=== PATIENT | male | born 1950 | race Caucasian/White ===

== ENCOUNTER 2017-07-22 13:42 | Emergency (ER) | payer OTHER, MEDICARE ==
[2017-07-22] MEDS ORDERED: morphine CARPU-JECT 10 MG/1 ML DISP.SYRIN ONE (14:02)
[2017-07-22] MEDS ORDERED: MIDAZOLAM HCL 5 MG/1 ML Single Dose Vial IVPUSH ONE (14:08)
[2017-07-22] MEDS ORDERED: KETAMINE HCL 200 MG/20 ML VIAL IVPUSH ONE (14:08)
--- NOTE | 2017-07-22 14:13 | PDOC ---
History of Present Illness - History of Present Illness Initial Comments: 07/22/17 14:40 The patient is a 66 year old male with a history of a right hip replacement and revision in 2015 who presents for evaluation of right hip pain following a fall. The patient reports that earlier today, he tripped, twisted his hip and fell onto his right hip with immediate pain. He denies head trauma, or other injuries. He denies numbness or tingling in his extremities, but reports extreme pain with manipulation of his leg. He denies headache, SOB, chest pain , or abdominal pain. <Giovanny Méndez - Last Filed: 07/22/17 19:03> <Melvin Delaney - Last Filed: 08/04/17 07:49> - General Chief Complaint: Injury Stated Complaint: POSSIBLE FRACTURE Time Seen by Provider: 07/22/17 13:55 Past History - Past Medical History Hypercholesterolemia: Yes - Suicide/Smoking/Psychosocial Hx Smoking Status: No Smoking History: Never smoked Have you smoked in the past 12 months: No Number of Cigarettes Smoked Daily: 0 Hx Alcohol Use: No Drug/Substance Use Hx: No Substance Use Type: None <Giovanny Méndez - Last Filed: 07/22/17 19:03> <Melvin Delaney - Last Filed: 08/04/17 07:49> - Past Medical History Allergies/Adverse Reactions: Allergies Allergy/AdvReac Type Severity Reaction Status Date / Time No Known Allergies Allergy Verified 07/22/17 14:21 Home Medications: Ambulatory Orders Aspirin 81 mg PO DAILY 02/10/13 Atorvastatin Ca [Lipitor (Restricted To Cardiology)] 20 mg PO HS 02/10/13 Review of Systems - Review of Systems Comments:: 07/22/17 14:47 Constitutional: No fevers, chills, fatigue, malaise HEENT: No Rhinorrhea, nasal congestion, visual changes Cardiovascular: No chest pain, syncope, palpitations, lightheadedness Respiratory: No Cough, SOB, Hemoptysis, Gastrointestinal: No Abdominal pain, Nausea, Vomiting, Constipation, Diarrhea, Melena Genitourinary: No Dysuria, Frequency, Urgency, Hesitancy, Hematuria, Flank pain Musculoskeletal: Right hip pain. No Myalgia, arthralgia Skin: No rashes, bruising, pallor Neurologic: No Headache, Dizziness, Numbness, Weakness, or Tingling <Giovanny Méndez - Last Filed: 07/22/17 19:03> *Physical Exam - Physical Exam Comments: 07/22/17 14:47 General Appearance: Nourished. In Severe Distress with manipulation of right leg. HEENT: EOMI, AFUA. No obvious signs of head trauma. No Pharyngeal Erythema, Tonsillar Exudate, Tonsillar Erythema Neck: No Cervical Lymphadenopathy or C-spine Tenderness. Respiratory/Chest: Lungs Clear, Normal Breath Sounds. No Crackles, Rales, Rhonchi, Wheezing Cardiovascular: Regular Rhythm, Regular Rate. No Murmur, Gallops, Rubs Gastrointestinal/Abdominal: Normal Bowel Sounds, Soft. No Guarding, Rebound, Tenderness Musculoskeletal: Obvious deformity of the right thigh. Sensation to light touch and temperature intact distally to the injury. Intact DP pulses bilaterally. No CVA Tenderness Extremity: Normal Capillary Refill Integumentary: Normal Color, Dry, Warm Neurologic: Fully Oriented, Alert, Normal Mood/Affect, Normal Response, <Giovanny Méndez - Last Filed: 07/22/17 19:03> - Vital Signs Last Vital Signs Temp Pulse Resp BP Pulse Ox 97.9 F 81 20 171/94 95 07/22/17 13:42 07/22/17 16:39 07/22/17 19:04 07/22/17 16:39 07/22/17 16:39 <Melvin Delaney - Last Filed: 08/04/17 07:49> Procedures - Splinting Splint Location: Left: Ankle, Knee Pre-Proc Neuro Vasc Exam: normal Pre-Made Type: Traction Splint Splint Type: Yes: Long Leg (Traction Splint) Post-Proc Neuro Vasc Exam: normal, unchanged from pre-exam Good repositioning: Yes <Giovanny Méndez - Last Filed: 07/22/17 19:03> - Consent Consent obtained: From Patient - Additional Procedures Progress: Moderate Sedation Crash cart at bedside. Laryngoscopes, BVM and suction at bedside. Fentanyl and Propofol utilized with no complications. Maintained good ventilations with normal capnography throughout the procedure. Pt able to respond with verbal stimulation while under moderate sedation. No hypoxia appreciated throughout the process. Pt was noted to return to baseline without complications following reduction of right femur. <Melvin Delaney - Last Filed: 08/04/17 07:49> ED Treatment Course - LABORATORY CBC & Chemistry Diagram: 07/22/17 14:11 07/22/17 14:11 - RADIOLOGY Radiology Studies Ordered: Category Date Time Status PELVIS [RAD] Stat Radiology 07/22/17 14:10 Ordered <HoneyGiovanny - Last Filed: 07/22/17 19:03> - LABORATORY CBC & Chemistry Diagram: 07/22/17 14:11 07/22/17 14:11 - ADDITIONAL ORDERS Additional order review: 07/22/17 14:11 RBC 4.33 MCV 95.8 MCHC 33.5 RDW 12.5 MPV 8.5 Neutrophils % 73.5 Lymphocytes % 17.4 Monocytes % 6.8 Eosinophils % 1.4 Basophils % 0.9 - Medications Given in the ED: ED Medications Discontinued Medications Generic Name Dose Route Start Last Admin Trade Name Itz PRN Reason Stop Dose Admin Fentanyl 100 mcg 07/22/17 15:43 07/22/17 16:12 Sublimaze Injection - IVPUSH 07/22/17 15:44 100 mcg ONCE ONE Administration Hydromorphone HCl 1 mg 07/22/17 14:16 07/22/17 14:20 Dilaudid Injection - IVPUSH 07/22/17 14:17 1 mg ONCE ONE Administration Hydromorphone HCl 1 mg 07/22/17 18:07 07/22/17 18:13 Dilaudid Injection - IVPUSH 07/22/17 18:08 1 mg ONCE ONE Administration Hydromorphone HCl 1 mg 07/22/17 20:11 07/22/17 20:12 Dilaudid Injection - IVPUSH 07/22/17 20:12 1 mg NOW ONE Administration Ketamine HCl 200 mg 07/22/17 14:08 07/22/17 17:07 Ketalar - IVPUSH 07/22/17 14:09 Not Given ONCE ONE Midazolam HCl 5 mg 07/22/17 14:08 07/22/17 17:07 Versed - IVPUSH 07/22/17 14:09 Not Given ONCE ONE Morphine Sulfate 8 mg 07/22/17 14:21 07/22/17 14:00 Morphine Injection - IVPUSH 07/22/17 14:22 8 mg ONCE ONE Administration Ondansetron HCl 4 mg 07/22/17 14:16 07/22/17 14:31 Zofran Injection IVPUSH 07/22/17 14:17 4 mg ONCE ONE Administration Propofol 20,000 mcg 07/22/17 15:43 07/22/17 16:33 Diprivan - IVPUSH 07/22/17 15:44 9,000 mcg ONCE ONE Administration <Melvin Delaney - Last Filed: 08/04/17 07:49> Medical Decision Making - Medical Decision Making 07/22/17 14:55 The patient is a 66 year old male with a history of a right hip replacement and revision in 2015 who presents for evaluation of right hip pain following a fall. Differential includes but is not limited to: Fracture, dislocation, contusion. Given the patient's obvious deformity and severe pain, it is likely the patient fracture his femur. We obtain pelvis plain films which demonstrated a displaced femur fracture at the distal aspect of his prosthesis. We sent pre-op labs including cbc, cmp, type and screen, inr, chest plain film. We will consult with orthopedics for evaluation. 07/22/17 17:00 Patient requesting transfer to [facility] where he previously had his hip surgery. Discussed with orthopedics who stated that they are able to take the patient for management, however if he would like to be transferred that would be an appropriate as well. We preformed procedural sedation to reduce the leg and place it in a traction splint. The patient continues to be neurovasculary intact following the procedure. Transfer has been initiated to [facility]. <Giovanny Méndez - Last Filed: 07/22/17 19:03> *DC/Admit/Observation/Transfer - Transfer to Acute Care Facility Receiving Facility: Other hosp. not listed ([facility]) Accepting Physician:: Dr. Corona <Giovanny Méndez - Last Filed: 07/22/17 19:03> <Melvin Delaney - Last Filed: 08/04/17 07:49> Diagnosis at time of Disposition: Right femoral fracture Qualifiers: Encounter type: initial encounter Femur location: unspecified portion of femur Fracture type: closed Fracture morphology: unspecified fracture morphology Qualified Code(s): S72.91XA - Unspecified fracture of right femur, initial encounter for closed fracture - Discharge Dispostion Disposition: TRANSFER ACUTE CARE/OTHER HOSP Condition at time of disposition: Stable
[2017-07-22] MEDS ORDERED: HYDROmorphone HCL CARPU-JECT 1 MG/1 ML DISP.SYRIN IVPUSH ONE ×3 (14:16→20:11)
[2017-07-22] MEDS ORDERED: ONDANSETRON 4 MG/2 ML VIAL IVPUSH ONE (14:16)
[2017-07-22 14:18] LABS: BASOPHIL 0.9 % (0-2.0); EOSINOPHIL 1.4 % (0-4.5); MCH 32.1 pg (25.7-33.7); MCHC 33.5 g/dl (32.0-35.9); MEAN CELL VOLUME 95.8 fl (80-96); MEAN PLT VOLUME 8.5 fl (7.5-11.1); NEUTROPHILS 73.5 % (42.8-82.8); PLATELET COUNT 216 K/MM3 (134-434); RDW 12.5 % (11.9-15.9); WHITE BLOOD COUNT 6.9 K/mm3 (4.0-10.0)
[2017-07-22] MEDS ORDERED: HYDROmorphone HCL CARPU-JECT 1 MG/1 ML DISP.SYRIN ONE ×3 (14:20→20:02)
[2017-07-22] MEDS ORDERED: morphine CARPU-JECT 10 MG/1 ML DISP.SYRIN IVPUSH ONE (14:21)
[2017-07-22] MEDS ORDERED: ONDANSETRON 4 MG/2 ML VIAL ONE (14:22)
[2017-07-22 14:28] VITALS: TEMP 97.9; BMI 88.6
[2017-07-22 14:36] LABS: INR 0.94 (0.82-1.09); PROTHROMBIN TIME (PATIENT) 10.6 SEC (9.98-11.88)
[2017-07-22 14:39] LABS: ACTIVATED PTT 26.8 SECONDS (26.9-34.4)
[2017-07-22 14:48] LABS: ALBUMIN 3.9 g/dl (3.4-5.0); ANION GAP 10 (8-16); BILIRUBIN,TOTAL 0.5 mg/dL (0.2-1.0); CALCIUM 8.7 mg/dL (8.5-10.1); CO2 26 mmol/L (21-32); CREATININE 0.9 mg/dL (0.7-1.3); GLUCOSE,RANDOM 92 mg/dL (74-106); SGOT/AST 26 U/L (15-37); SGPT/ALT 31 U/L (12-78); TOT PROT 7.5 g/dl (6.4-8.2)
--- NOTE | 2017-07-22 14:48 | PDOC ---
Attending Attestation - Resident Resident Name: Giovanny Méndez - ED Attending Attestation I have performed the following: I have examined & evaluated the patient, The case was reviewed & discussed with the resident, I agree w/resident's findings & plan, Exceptions are as noted - HPI HPI: 07/22/17 14:45 66 year old M c/ hx of atrial fibrillation, HLD, R hip replacement in [facility] and later revised in 2014 at [facility] p/w R hip/femur pain. Pt slipped and twisted R leg. Came in with excruciating pain. Denies numbness. 2+ DP pulse LLE. Radiograph demonstrates a fracture of the femur distal to the prosthetic R hip. Ortho paged. No evidence of skin breakage. - Physicial Exam PE: 07/22/17 14:46 GENERAL: uncomfortable appearing CV: RRR, +s1, s2 PULM: CTA b/l Obvious deformity of right femur with no evidence of open fracture. Distal portion of the femur is angulated. 2+ DP pulse LLE. - Medical Decision Making 07/22/17 14:48 Vital Signs Temp Pulse Resp BP Pulse Ox 97.9 F 81 18 176/111 100 07/22/17 13:42 07/22/17 13:42 07/22/17 13:42 07/22/17 13:42 07/22/17 13:42 Xray demonstrates significant fracture distal to Right prosthetic hip. Neurovascularly intact Stat ortho consultation. Pre-op labs Pain control Admission. 07/22/17 16:59 Xray reviewed. Significant femur fracture with displacement. Decision was made to place patient in hare traction splint. Patient consented for moderate sedation and reduction. Mallampatti 1 Procedure performed with , Dr. Santana, Dr. Méndez, and Dr. Simmons. 90 mg propofol and 100 mcg fentanyl given. Pt successfully placed in traction splint Pt remains neurovascularly intact with 2+ DP Pulse. After discussion with the patient, the patient requests to go to [facility] as he had his hip revised at [facility]. Case discussed with ortho fellow Dr. Kramer at [facility] who accepts patient for transfer. Heart Score/ECG Review #1 ECG reviewed & interpreted by me at: 15:15 07/22/17 15:22 NSR 85, WPW, no std/sharda, QTC 485 msec
[2017-07-22 14:51] LABS: ALK PHOS 62 U/L (45-117); CPK 162 IU/L (39-308); TROPONIN I < 0.02 ng/ml (0.00-0.05)
[2017-07-22] MEDS ORDERED: PROPOFOL 200 MG/20 ML VIAL IVPUSH ONE (15:43)
[2017-07-22] MEDS ORDERED: PROPOFOL 20 ML ONE (15:48)
[2017-07-22 16:39] VITALS: BP 171/94; PULSE 81
--- NOTE | 2017-07-23 11:05 | EKG ---
Test Reason : Blood Pressure : / mmHG Vent. Rate : 085 BPM Atrial Rate : 085 BPM P-R Int : 124 ms QRS Dur : 102 ms QT Int : 408 ms P-R-T Axes : 072 -04 094 degrees QTc Int : 485 ms NORMAL SINUS RHYTHM [id number] ABNORMAL ECG NO PREVIOUS ECGS AVAILABLE Confirmed by FLORINA PAUL MD ([id number]) on 07/23/2017 11:04:34 AM Referred By: Confirmed By:FLORINA PAUL MD
== END 2017-07-22 20:13 | disposition short-term general hospital (02) ==
LOC: JER 13:42
PROC: 3E033NZ Introduction of Analgesics, Hypnotics, Sedatives into Peripheral Vein, Percutaneous Approach (ICD-10-PCS; principal; 2017-07-22)
PROC: 3E033GC Introduction of Other Therapeutic Substance into Peripheral Vein, Percutaneous Approach (ICD-10-PCS; 2017-07-22)
PROC: 3E033NZ Introduction of Analgesics, Hypnotics, Sedatives into Peripheral Vein, Percutaneous Approach (ICD-10-PCS; 2017-07-22)
PROC: 3E033NZ Introduction of Analgesics, Hypnotics, Sedatives into Peripheral Vein, Percutaneous Approach (ICD-10-PCS; 2017-07-22)
PROC: 0QS8XZZ Reposition Right Femoral Shaft, External Approach (ICD-10-PCS; 2017-07-22)
PROC: 2W3LX1Z Immobilization of Right Lower Extremity using Splint (ICD-10-PCS; 2017-07-22)
DX: S72.91XA Unspecified fracture of right femur, initial encounter for closed fracture (principal); E78.00 Pure hypercholesterolemia, unspecified; Z79.82 Long term (current) use of aspirin; Z96.641 Presence of right artificial hip joint; W18.39XA Other fall on same level, initial encounter; Y93.89 Activity, other specified; Y92.014 Private driveway to single-family (private) house as the place of occurrence of the external cause; M97.01XA Periprosthetic fracture around internal prosthetic right hip joint, initial encounter
CPT/HCPCS: 27502; 29505; 36415; 71010-TC; 72170-TC; 80053; 82550; 82553; 84484; 85025; 85610; 85730; 86850; 86900; 86901; 93005; 93010; 96374; 96375; 99285-25

== ENCOUNTER 2019-11-25 09:23 | Inpatient (IN) | payer OTHER, MEDICARE ==
--- NOTE | 2019-11-25 09:55 | PDOC ---
History of Present Illness - General Chief Complaint: Pain Stated Complaint: SENT FROM URGENT CARE FOR FURTHER EVAL HAD EKG Time Seen by Provider: 11/25/19 09:43 History Source: Patient Exam Limitations: No Limitations - History of Present Illness Travel History: No Initial Comments: 11/25/19 09:52 69y M pmhx WPW, presents with episode of epgiastric pain last night around 2am. Patient describes the pain as a sharp/burning epigastric discomfort approximately 7 out of 10, that is nonradiating. Patient states that he tried to drink some water and it worsened the burning last night. Patient denies any other symptoms including nausea, vomiting, diaphoresis, shortness of breath, back pain, palpitations. The patient's ambulated to the restroom and did feel very lightheaded and felt like he was about to pass out but resolved after a brief period of time. He notes that after initial onset of symptoms the symptoms gradually improved by time of back to bed around 3 AM. Since awakening this morning the patient denies any epigastric discomfort, chest pain, shortness of breath, nausea, vomiting or any other symptoms. Patient has never felt similar symptoms in the past. He did note that he had some not shows with [employer] yesterday which is atypical for him Around 3 PM he had a Healthy dinner of chicken last night. 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) Social history denies any IVDU recreational drug use, smoking, social etoh Family hx: prostate ca, no known cardiac issues in family Past History - Past Medical History Allergies/Adverse Reactions: Allergies Allergy/AdvReac Type Severity Reaction Status Date / Time No Known Allergies Allergy Verified 11/25/19 09:34 Home Medications: Ambulatory Orders Aspirin [ASA -] 81 mg PO DAILY tab.chew 11/26/19 Atorvastatin Ca [Lipitor] 80 mg PO HS tablet 11/26/19 Enoxaparin [Lovenox -] 75 mg SQ Q12H disp.syrin 11/26/19 Metoprolol Tartrate [Lopressor -] 12.5 mg PO BID tablet 11/26/19 Nitroglycerin Sublingual [Nitrostat -] 0.4 mg SL Q5M PRN tab 11/26/19 Pantoprazole Sodium [Protonix IV] 40 mg IVPUSH DAILY vial 11/26/19 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) COPD: No Hypercholesterolemia: Yes - Psycho Social/Smoking Cessation Hx Smoking Status: No Smoking History: Never smoked Have you smoked in the past 12 months: No Number of Cigarettes Smoked Daily: 0 Hx Alcohol Use: Yes (SOCIAL) Drug/Substance Use Hx: No Substance Use Type: None Review of Systems - Review of Systems Able to Perform ROS?: Yes Comments:: 11/25/19 10:37 Constitutional - no reported Fever, Chills, HEENT: no reported vision changes, sore throat Respiratory: no reported cough, sob, hemoptysis Cardiac: +light headedness no reported chest pain, palpitations, , leg swelling Abd/GI: +abd pain, no reported nausea, vomiting, blood per rectum, melena, diarrhea : no reported dysuria, frequency, discharge Musculskelatal - no reported back pain, joint swelling skin - no reported bruising, erythema, rash neurological: no reported headache, numbness, focal weakness, tingling, ataxia, hematologic: no reported easy bruising, easy bleeding *Physical Exam - Vital Signs Last Vital Signs Temp Pulse Resp BP Pulse Ox 97.9 F 67 16 117/84 98 11/25/19 09:33 11/25/19 09:33 11/25/19 09:33 11/25/19 09:33 11/25/19 09:33 - Physical Exam 11/25/19 10:37 GENERAL: The patient is awake, alert, and fully oriented, Nontoxic - in no acute distress. HEAD: Normocephalic, atraumatic. EYES: extraocular movements intact, sclera anicteric, conjunctiva clear. ENT: Normal voice, Moist mucous membranes. NECK: Normal range of motion, supple LUNGS: Breath sounds equal, clear to auscultation bilaterally. No wheezes, no rhonchi, no rales. HEART: Regular rate and rhythm, normal S1 and S2 without murmur, rub or gallop. ABDOMEN: Soft, nontender, No guarding, no rebound. No CVA tenderness EXTREMITIES: Normal range of motion, no edema. NEUROLOGICAL: No facial assymetry, Normal speech, PSYCH: Normal mood, normal affect. SKIN: Warm, Dry, normal turgor, Heart Score/ECG Review - ECG Impressions Comment:: 11/25/19 10:38 Twelve-lead EKG was performed and reviewed by me. Sinus rhythm LVH Delta wave consistent with WPW Short VA interval Impression: WPW ED Treatment Course - LABORATORY CBC & Chemistry Diagram: 11/26/19 06:47 11/27/19 06:55 Medical Decision Making - Medical Decision Making 11/25/19 10:41 69-year-old gentleman history of WPW presenting with episode of sharp burning epigastric pain last night associated with lightheadedness that is since resolved without any associated shortness of breath, dyspnea on exertion, nausea , vomiting, diaphoresis. Patient was sent to the ER for evaluation by urgent care for cardiac work-up. Patient is currently asymptomatic with an unremarkable physical exam Differential for the patient's symptoms includes possible gastritis, consider cardiac cause, Although it is somewhat atypical as the patient has a very active lifestyle And has been asymptomatic during his workouts. Consider also possible gallstone disease. Will obtain blood work, troponin x1 EKG unchanged from prior showing WPW Will reassess 11/25/19 11:50 Pts trop noted to be slightly eelvated at .35 - will admit for further risk stratification will give pt 3 additional baby aspirin (he had 1 baby asa this morning) 11/25/19 11:55 Pt denies any chest pain at this time 11/25/19 12:[address] foster of cardiology. will place admit for further manageme awaiting call back from hospitalist team pt remains asymptomatic 11/25/19 12:35 cxr clear without signs of infiltrates 11/26/19 18:45 Case discussed in detail with admitting physician including history, physical exam and ancillary studies. Admitting physician has assumed care for the patient, will follow all pending diagnostics and will complete the evaluation and treatment. Discharge - Discharge Information Problems reviewed: Yes Clinical Impression/Diagnosis: Chest pain Qualifiers: Chest pain type: unspecified Qualified Code(s): R07.9 - Chest pain, unspecified Condition: Stable Disposition: TRANSFER ACUTE CARE/OTHER HOSP - Admission Yes - Follow up/Referral - Patient Discharge Instructions - Post Discharge Activity
[2019-11-25 10:29] LABS: BASO % 0.9 % (0-2.0); EOS % 2.7 % (0-4.5); HEMATOCRIT 42.8 % (35.4-49); HEMOGLOBIN 14.3 GM/dl (11.7-16.9); LYMPH % 17.3 % (8-40); MCH 32.1 pg (25.7-33.7); MCHC 33.4 g/dl (32.0-35.9); MEAN CELL VOLUME 96.1 fl (80-96); MEAN PLT VOLUME 8.2 fl (7.5-11.1); MONO % 8.4 % (3.8-10.2); NEUT % 70.7 % (42.8-82.8); PLATELET COUNT 249 K/MM3 (134-434); RBC 4.45 M/mm3 (4.00-5.60); RDW 12.1 % (11.9-15.9)
[2019-11-25 10:43] LABS: BILIRUBIN,TOTAL 0.9 mg/dl (0.2-1); CALCIUM 9.4 mg/dl (8.5-10); CREATININE 0.9 mg/dl (0.55-1.3); POTASSIUM 4.7 mmol/L (3.5-5.1); TOT PROT 7.3 g/dl (6.4-8.2)
[2019-11-25] MEDS ORDERED: ASPIRIN 81 MG CHEWABLE TABLETS PO ONE ×2 (11:30→11:49)
[2019-11-25] MEDS ORDERED: ASPIRIN 81 MG CHEWABLE TABLETS ONE (11:34)
[2019-11-25] MEDS ORDERED: NITROGLYCERIN SUBLINGUAL 1/150 0.4 MG TAB SL PRN (16:34)
--- NOTE | 2019-11-25 16:34 | HP ---
CHIEF COMPLAINT: Chest pain PCP: Ana Arriola in [facility] HISTORY OF PRESENT ILLNESS: 69 year-old male with a PMH significant for hyperlipidemia, and Mike-Parkinson- White syndrome (lifelong asymptomatic), presented to the ED for evaluation of an episode of chest pain at 2:00am this morning. The pain awoke patient from sleep. He describes the pain as a sharp/burning epigastric discomfort, directly over the sternum, approximately 7 out of 10, nonradiating left or right. When he walked to the bathroom he felt lightheaded like he was about to pass out. He tried to drink some water but it made the burning pain worse. He went back to bed. The following events are related by patient's as patient states he has no recollection of what happened next. At 4am he took Pepto Bismol and again went back to sleep. At 6:30am, his observed him stumbling into her bathroom. He was unsteady on his feet with labored breathing and complaining of severe chest pain. She told him to get back in bed. She called urgent care and made an appointment for 8am. She woke him at 7:50am and drove him to urgent care. She observed him walking slowly with labored breathing. She felt his pulse which to her felt strong and steady, not racing. Patient's only recollection is that he felt weak. Since arriving in the ED patient states the pain has completely resolved. Two months ago patient had a gout flare in his right ankle, took colchicine x 5 days, remained active. About two weeks ago he had circumferential swelling about the right ankle. He did not seek medical care , he remained active, and the swelling resolved. No recent surgeries, periods of immobilization. Only recent travel was a car trip to [place] last Monday, [address] 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 from [employer] Smoking: never Alcohol: no Drugs: no Family history: Father prostate cancer, two brothers with prostate cancer; mother alive with heart problems Allergies No Known Allergies Allergy (Verified 11/25/19 09:34) HOME MEDICATIONS: Home Medications Medication Instructions Recorded Aspirin 81 mg PO DAILY 02/10/13 Atorvastatin Ca [Lipitor 20 mg PO HS 02/10/13 (Restricted To Cardiology)] REVIEW OF SYSTEMS CONSTITUTIONAL: Absent: fever, chills, diaphoresis, generalized weakness, malaise, loss of appetite, weight change HEENT: Absent: rhinorrhea, nasal congestion, throat pain, throat swelling, difficulty swallowing, mouth swelling, ear pain, eye pain, visual changes CARDIOVASCULAR: +chest pain, lightheadedness, near syncope, SOB Absent: palpitations, irregular heart rate, peripheral edema RESPIRATORY: Absent: cough, shortness of breath, dyspnea with exertion, orthopnea, wheezing, stridor, hemoptysis GASTROINTESTINAL: Absent: abdominal pain, abdominal distension, nausea, vomiting, diarrhea, constipation, melena, hematochezia GENITOURINARY: Absent: dysuria, frequency, urgency, hesitancy, hematuria, flank pain, genital pain MUSCULOSKELETAL: Absent: myalgia, arthralgia, joint swelling, back pain, neck pain SKIN: Absent: rash, itching, pallor HEMATOLOGIC/IMMUNOLOGIC: Absent: easy bleeding, easy bruising, lymphadenopathy, frequent infections ENDOCRINE: Absent: unexplained weight gain, unexplained weight loss, heat intolerance, cold intolerance NEUROLOGIC: Absent: headache, focal weakness or paresthesias, dizziness, unsteady gait, seizure, mental status changes, bladder or bowel incontinence PSYCHIATRIC: Absent: anxiety, depression, suicidal or homicidal ideation, hallucinations. PHYSICAL EXAMINATION Vital Signs - 24 hr 11/25/19 11/25/19 11/25/19 09:33 13:18 15:24 Temperature 97.9 F Pulse Rate 67 Pulse Rate [ 62 64 Apical] Respiratory 16 16 16 Rate Blood Pressure 117/84 Blood Pressure 140/93 136/93 [Right Arm] O2 Sat by Pulse 98 100 100 Oximetry (%) GENERAL: Awake, alert, and fully oriented, in no acute distress. HEAD: Normal with no signs of trauma. EYES: Pupils equal, round and reactive to light, extraocular movements intact, sclera anicteric, conjunctiva clear. No lid lag. EARS, NOSE, THROAT: Ears normal, nares patent, oropharynx clear without exudates. Moist mucous membranes. NECK: Normal range of motion, supple without lymphadenopathy, JVD, or masses. LUNGS: Breath sounds equal, clear to auscultation bilaterally. No wheezes, and no crackles. No accessory muscle use. HEART: Regular rate and rhythm, normal S1 and S2 without murmur, rub or gallop. ABDOMEN: Soft, nontender, not distended, normoactive bowel sounds, no guarding, no rebound, no masses. No hepatomegaly or splenomegaly. MUSCULOSKELETAL: Normal range of motion at all joints. No bony deformities or tenderness. No CVA tenderness. UPPER EXTREMITIES: 2+ pulses, warm, well-perfused. No cyanosis. No clubbing. No peripheral edema. LOWER EXTREMITIES: 2+ pulses, warm, well-perfused. No calf tenderness. No peripheral edema. NEUROLOGICAL: Cranial nerves II-XII intact. Normal speech. Normal gait. PSYCHIATRIC: Cooperative. Good eye contact. Appropriate mood and affect. SKIN: Warm, dry, normal turgor, no rashes or lesions noted, normal capillary refill. Laboratory Results - last 24 hr 11/25/19 11/25/19 11/25/19 10:14 10:14 10:14 WBC 5.0 RBC 4.45 Hgb 14.3 Hct 42.8 MCV 96.1 H MCH 32.1 MCHC 33.4 RDW 12.1 Plt Count 249 MPV 8.2 Absolute Neuts (auto) 3.6 Neutrophils % 70.7 Lymphocytes % 17.3 Monocytes % 8.4 Eosinophils % 2.7 Basophils % 0.9 Sodium 140 Potassium 4.7 Chloride 103 Carbon Dioxide 27 Anion Gap 10 BUN 23.0 H Creatinine 0.9 Est GFR (CKD-EPI)AfAm 99.94 Est GFR (CKD-EPI)NonAf 86.23 Random Glucose 108 H Calcium 9.4 Total Bilirubin 0.9 AST 25 ALT 22 Alkaline Phosphatase 62 Creatine Kinase Creatine Kinase Index CK-MB (CK-2) Troponin I Total Protein 7.3 Albumin 4.0 Lipase 139 11/25/19 11/25/19 11/25/19 10:14 10:14 13:35 WBC RBC Hgb Hct MCV MCH MCHC RDW Plt Count MPV Absolute Neuts (auto) Neutrophils % Lymphocytes % Monocytes % Eosinophils % Basophils % Sodium Potassium Chloride Carbon Dioxide Anion Gap BUN Creatinine Est GFR (CKD-EPI)AfAm Est GFR (CKD-EPI)NonAf Random Glucose Calcium Total Bilirubin AST ALT Alkaline Phosphatase Creatine Kinase 157 Creatine Kinase Index 5.2 H CK-MB (CK-2) 8.2 H Troponin I No Result Required. 0.35 H 0.41 H Total Protein Albumin Lipase Cancelled 11/25/19 13:35 WBC RBC Hgb Hct MCV MCH MCHC RDW Plt Count MPV Absolute Neuts (auto) Neutrophils % Lymphocytes % Monocytes % Eosinophils % Basophils % Sodium Potassium Chloride Carbon Dioxide Anion Gap BUN Creatinine Est GFR (CKD-EPI)AfAm Est GFR (CKD-EPI)NonAf Random Glucose Calcium Total Bilirubin AST ALT Alkaline Phosphatase Creatine Kinase 138 Creatine Kinase Index CK-MB (CK-2) Troponin I Total Protein Albumin Lipase ASSESSMENT/PLAN: 69 year-old male with a PMH significant for hyperlipidemia and Mike-Parkinson- White syndrome, placed on observation for chest pain and elevated troponins. Chest pain NSTEMI --troponins trending up: 0.35-->0.41-->0.64; continue to trend --serial ECGs: no acute ischemic changes; no significant change from 2017 --CXR unremarkable --discussed with Dr. Baca: ASA, increase atorvastatin to 80mg, lovenox 1mg/kg BID, low dose metoprolol --telemetry monitoring --echo in am --CTA done: dictation pending Hyperlipidemia --continue statin Gout --not on regular medication; last flare 2 months ago FEN Fluids: PO intake adequate Electrolytes: replete as indicated; keep K>4, Mg>2 Nutrition: regular diet; NPO after midnight DVT prophylaxis: on lovenox Dispo: continues to require continued observation. Full code. Visit type - Emergency Visit Emergency Visit: Yes ED Registration Date: 11/25/19 Care time: The patient presented to the Emergency Department on the above date and was hospitalized for further evaluation of their emergent condition. - New Patient This patient is new to me today: Yes Date on this admission: 11/25/19 - Critical Care Critical Care patient: No
[2019-11-25 16:53] VITALS: BMI 24.0
[2019-11-25] MEDS: PANTOPRAZOLE SODIUM 40 MG VIAL IVPUSH SCH (17:33)
[2019-11-25 18:15] LABS: ACTIVATED PTT 29.4 SECONDS (25.2-36.5)
[2019-11-25 18:19] LABS: INR 1.06 (0.82-1.09); PROTHROMBIN TIME (PATIENT) 11.9 SEC (10.2-13.0)
[2019-11-25 18:21] LABS: CHOLESTEROL 198 mg/dl (50-200); HDL CHOLESTEROL 60 mg/dl (40-60); LDL CHOLESTEROL (ONLY DFH) 105 mg/dl (5-100); TRIGLYCERIDES 167 mg/dl (0-150)
[2019-11-25] MEDS: ENOXAPARIN NA (PORCINE) 80 MG/0.8 ML DISP.SYRIN SQ SCH (19:31)
[2019-11-25] MEDS ORDERED: METOPROLOL TARTRATE 25 MG TABLET (FP) PO ONE (20:07)
[2019-11-25] MEDS: ATORVASTATIN CA 80 MG TABLET (FP) PO SCH (21:48)
[2019-11-25] MEDS ORDERED: HEPARIN NA (PORCINE) 5,000 UNITS/ML 1ML VIAL SQ SCH (22:00)
[2019-11-25] MEDS ORDERED: ATORVASTATIN CA 20 MG TABLET (FP) PO SCH (22:00)
[2019-11-26] MEDS: ENOXAPARIN NA (PORCINE) 80 MG/0.8 ML DISP.SYRIN SQ SCH ×2 (06:19→19:15)
[2019-11-26 07:48] LABS: BASO % 0.8 % (0-2.0); EOS % 3.7 % (0-4.5); HEMATOCRIT 40.1 % (35.4-49); HEMOGLOBIN 13.3 GM/dl (11.7-16.9); LYMPH % 20.2 % (8-40); MCH 31.7 pg (25.7-33.7); MCHC 33.2 g/dl (32.0-35.9); MEAN CELL VOLUME 95.3 fl (80-96); MONO % 9.5 % (3.8-10.2); NEUT % 65.8 % (42.8-82.8); PLATELET COUNT 232 K/MM3 (134-434); RBC 4.21 M/mm3 (4.00-5.60); RDW 11.9 % (11.9-15.9); WHITE BLOOD COUNT 5.2 K/mm3 (4.0-10.8)
[2019-11-26 08:00] LABS: ALBUMIN 3.5 g/dl (3.4-5.0); BILIRUBIN,TOTAL 0.7 mg/dl (0.2-1); CALCIUM 8.8 mg/dl (8.5-10); CREATININE 0.9 mg/dl (0.55-1.3); MAGNESIUM 2.1 mg/dL (1.8-2.4); TOT PROT 6.4 g/dl (6.4-8.2)
--- NOTE | 2019-11-26 09:23 | EKG ---
Test Reason : Blood Pressure : / mmHG Vent. Rate : 065 BPM Atrial Rate : 065 BPM P-R Int : 136 ms QRS Dur : 140 ms QT Int : 420 ms P-R-T Axes : 137 -26 148 degrees QTc Int : 436 ms UNUSUAL P AXIS, POSSIBLE ECTOPIC ATRIAL RHYTHM LEFT VENTRICULAR HYPERTROPHY WITH QRS WIDENING INFERIOR INFARCT (CITED ON OR BEFORE 25-NOV-2019) T WAVE ABNORMALITY, CONSIDER LATERAL ISCHEMIA ABNORMAL ECG Confirmed by Markos Mcpherson MD ([id number]) on 11/26/2019 9:22:52 AM Referred By: IONA ENGEL Confirmed By:Markos Mcpherson MD
--- NOTE | 2019-11-26 09:59 | CON.CARD ---
Consult Consult Specialty:: Cardiology Referred by:: Hospitalist Reason for Consultation:: Cardiac evaluation - History of Present Illness Chief Complaint: Chest pain History of Present Illness: Patient is a 69 year old male with underlying history of WPW (asymptomatic) and hypercholesterolemia who presented with episode of chest pressure early Monday morning which at first thought was a heartburn. He stated burning epigastric discomfort and felt like passing out with lightheadedness. Pressure was non- radiating and did not have diaphoresis or sweating. Later that morning, his breathing appeared labored according to his . He denies any events or symptoms on Monday or Monday. He went to urgent care center where he was evaluated and was told to go to ED. Patient was found to have elevated troponin which peaked at 0.64 and now down to 0.30. He was given high intensity statin, ASA and Lovenox. Patient had taken Colchicine for gout flare 2 months ago. Currently he denies chest pain, shortness of breath or palpitations. He denies fever or chills. He denies headache or lightheadedness at this time. He denies nausea. vomiting, diarrhea or abdominal pain. Incidentally, CT chest revealed 11 mm right pulmonary nodule spiculated/irregularly reported suspicious for malignancy. CT chest did not reveal pulmonary embolism. Lower extremity Doppler did not reveal DVT. PMD: John Faulkner MD: [facility] - History Source History Provided By: Patient, Family Member, Medical Record Limitations to Obtaining History: No Limitations - Past Medical History Cardio/Vascular: Yes: Hyperlipdemia - Past Surgical History Past Surgical History: Yes: Joint Replacement Additional Surgical History: Laminectomy - Alcohol/Substance Use Hx Alcohol Use: Yes (SOCIAL) - Smoking History Smoking history: Never smoked Have you smoked in the past 12 months: No Aproximately how many cigarettes per day: 0 Home Medications - Allergies Allergies/Adverse Reactions: Allergies Allergy/AdvReac Type Severity Reaction Status Date / Time No Known Allergies Allergy Verified 11/25/19 09:34 - Home Medications Home Medications: Ambulatory Orders Aspirin 81 mg PO DAILY 02/10/13 Atorvastatin Ca [Lipitor (Restricted To Cardiology)] 20 mg PO HS 02/10/13 Family Medical History Other Family History: Prostate cancer, hypercholesterolemia. Denies CAD Review of Systems - Review of Systems Constitutional: denies: Chills, Fever Cardiovascular: reports: Chest Pain. denies: Palpitations, Shortness of Breath Respiratory: denies: Cough, Hemoptysis, Orthopnea, PND, SOB, SOB on Exertion, Wheezing Gastrointestinal: denies: Abdominal Pain, Constipation, Diarrhea, Melena, Nausea , Rectal Bleeding, Vomiting Genitourinary: denies: Dysuria, Hematuria Musculoskeletal: denies: Back Pain, Joint Pain Neurological: denies: Dizziness, Headache, Seizure, Syncope Vital Signs: Vital Signs Temperature 98.1 F 11/26/19 08:57 Pulse Rate 71 11/26/19 08:57 Respiratory Rate 16 11/26/19 08:57 Blood Pressure 106/69 11/26/19 08:57 O2 Sat by Pulse Oximetry (%) 98 11/26/19 08:57 Eyes: Yes: PERRL HENT: Yes: Atraumatic Neck: Yes: Supple Respiratory: Yes: CTA Bilaterally Gastrointestinal: Yes: Normal Bowel Sounds, Soft. No: Tenderness Cardiovascular: Yes: Regular Rate and Rhythm. No: Gallop JVD: No Carotid Bruit: No PMI: Non-Displaced Heart Sounds: Yes: S1, S2 Edema: No - Other Data Labs, Other Data: CBC, BMP 11/26/19 06:47 11/26/19 06:47 INR, PTT INR 1.06 (0.82-1.09) 11/25/19 17:40 Troponin, BNP 11/25/19 11/25/19 11/25/19 10:14 10:14 13:35 Troponin I No Result Required. 0.35 H 0.41 H 11/25/19 11/26/19 11/26/19 17:40 02:00 08:06 Troponin I 0.64 H* 0.60 H 0.37 H Laboratory Results - last 24 hr 11/25/19 11/25/19 11/25/19 10:14 10:14 10:14 WBC 5.0 RBC 4.45 Hgb 14.3 Hct 42.8 MCV 96.1 H MCH 32.1 MCHC 33.4 RDW 12.1 Plt Count 249 MPV 8.2 Absolute Neuts (auto) 3.6 Neutrophils % 70.7 Lymphocytes % 17.3 Monocytes % 8.4 Eosinophils % 2.7 Basophils % 0.9 PT with INR INR PTT (Actin FS) D-Dimer Sodium 140 Potassium 4.7 Chloride 103 Carbon Dioxide 27 Anion Gap 10 BUN 23.0 H Creatinine 0.9 Est GFR (CKD-EPI)AfAm 99.94 Est GFR (CKD-EPI)NonAf 86.23 Random Glucose 108 H Calcium 9.4 Magnesium Total Bilirubin 0.9 AST 25 ALT 22 Alkaline Phosphatase 62 Creatine Kinase Creatine Kinase Index CK-MB (CK-2) Troponin I Total Protein 7.3 Albumin 4.0 Triglycerides Cholesterol Total LDL Cholesterol HDL Cholesterol Lipase 139 TSH 11/25/19 11/25/19 11/25/19 10:14 10:14 13:35 WBC RBC Hgb Hct MCV MCH MCHC RDW Plt Count MPV Absolute Neuts (auto) Neutrophils % Lymphocytes % Monocytes % Eosinophils % Basophils % PT with INR INR PTT (Actin FS) D-Dimer Sodium Potassium Chloride Carbon Dioxide Anion Gap BUN Creatinine Est GFR (CKD-EPI)AfAm Est GFR (CKD-EPI)NonAf Random Glucose Calcium Magnesium Total Bilirubin AST ALT Alkaline Phosphatase Creatine Kinase 157 Creatine Kinase Index 5.2 H CK-MB (CK-2) 8.2 H Troponin I No Result Required. 0.35 H 0.41 H Total Protein Albumin Triglycerides Cholesterol Total LDL Cholesterol HDL Cholesterol Lipase Cancelled TSH 11/25/19 11/25/19 11/25/19 13:35 17:40 17:40 WBC RBC Hgb Hct MCV MCH MCHC RDW Plt Count MPV Absolute Neuts (auto) Neutrophils % Lymphocytes % Monocytes % Eosinophils % Basophils % PT with INR INR PTT (Actin FS) D-Dimer Sodium Potassium Chloride Carbon Dioxide Anion Gap BUN Creatinine Est GFR (CKD-EPI)AfAm Est GFR (CKD-EPI)NonAf Random Glucose Calcium Magnesium Total Bilirubin AST ALT Alkaline Phosphatase Creatine Kinase 138 127 Creatine Kinase Index CK-MB (CK-2) Troponin I 0.64 H* Total Protein Albumin Triglycerides Cholesterol Total LDL Cholesterol HDL Cholesterol Lipase TSH 11/25/19 11/25/19 11/25/19 17:40 17:40 17:40 WBC RBC Hgb Hct MCV MCH MCHC RDW Plt Count MPV Absolute Neuts (auto) Neutrophils % Lymphocytes % Monocytes % Eosinophils % Basophils % PT with INR 11.9 INR 1.06 PTT (Actin FS) 29.4 D-Dimer Sodium Potassium Chloride Carbon Dioxide Anion Gap BUN Creatinine Est GFR (CKD-EPI)AfAm Est GFR (CKD-EPI)NonAf Random Glucose Calcium Magnesium Total Bilirubin AST ALT Alkaline Phosphatase Creatine Kinase Creatine Kinase Index CK-MB (CK-2) Troponin I Total Protein Albumin Triglycerides 167 H Cholesterol 198 Total LDL Cholesterol 105 H HDL Cholesterol 60 Lipase TSH 3.48 11/25/19 11/26/19 11/26/19 18:50 02:00 06:47 WBC 5.2 RBC 4.21 Hgb 13.3 Hct 40.1 MCV 95.3 MCH 31.7 MCHC 33.2 RDW 11.9 Plt Count 232 MPV 9.0 Absolute Neuts (auto) 3.5 Neutrophils % 65.8 Lymphocytes % 20.2 Monocytes % 9.5 Eosinophils % 3.7 Basophils % 0.8 PT with INR INR PTT (Actin FS) D-Dimer 345 Sodium Potassium Chloride Carbon Dioxide Anion Gap BUN Creatinine Est GFR (CKD-EPI)AfAm Est GFR (CKD-EPI)NonAf Random Glucose Calcium Magnesium Total Bilirubin AST ALT Alkaline Phosphatase Creatine Kinase Creatine Kinase Index CK-MB (CK-2) Troponin I 0.60 H Total Protein Albumin Triglycerides Cholesterol Total LDL Cholesterol HDL Cholesterol Lipase TSH 11/26/19 11/26/19 06:47 08:06 WBC RBC Hgb Hct MCV MCH MCHC RDW Plt Count MPV Absolute Neuts (auto) Neutrophils % Lymphocytes % Monocytes % Eosinophils % Basophils % PT with INR INR PTT (Actin FS) D-Dimer Sodium 138 Potassium 4.0 Chloride 105 Carbon Dioxide 25 Anion Gap 8 BUN 25.0 H Creatinine 0.9 Est GFR (CKD-EPI)AfAm 99.94 Est GFR (CKD-EPI)NonAf 86.23 Random Glucose 108 H Calcium 8.8 Magnesium 2.1 Total Bilirubin 0.7 AST 23 ALT 21 Alkaline Phosphatase 55 Creatine Kinase Creatine Kinase Index CK-MB (CK-2) Troponin I 0.37 H Total Protein 6.4 Albumin 3.5 Triglycerides Cholesterol Total LDL Cholesterol HDL Cholesterol Lipase TSH Sinus rhythm with WPW Echo: Pending Imaging - Results Chest X-ray: Report Reviewed Cat Scan: Report Reviewed (Chest CT No PTE but has 11 mm spiculated/irregular nodule right lung) Ultrasound: Report Reviewed (No DVT, but has Jaimes's cyst) EKG: Report Reviewed Problem List - Problems (1) NSTEMI (non-ST elevated myocardial infarction) Code(s): I21.4 - NON-ST ELEVATION (NSTEMI) MYOCARDIAL INFARCTION (2) Hypercholesterolemia Code(s): E78.00 - PURE HYPERCHOLESTEROLEMIA, UNSPECIFIED (3) WPW (Fkrry-Jvonasvqb-Emvux syndrome) Code(s): I45.6 - PRE-EXCITATION SYNDROME (4) Pulmonary nodule Code(s): R91.1 - SOLITARY PULMONARY NODULE (5) Chest pain Code(s): R07.9 - CHEST PAIN, UNSPECIFIED Qualifiers: Chest pain type: unspecified Qualified Code(s): R07.9 - Chest pain, unspecified Assessment/Plan 1. Clinically presenting with NSTEMI with episode of chest pressure 2. WPW (asymptomatic) 3. Hypercholesterolemia 4. History of gout PLAN: 1. Continue ASA 81 mg QD and add Plavix 75 mg QD 2. Metoprolol 12.5 mg BID 3. Continue Lovenox 4. Trend troponin 5. Echocardiography to assess LV/RV and valvular function 6. Cardiac catheterization to be scheduled with possible coronary stent (likely will need bare metal stent which will require 6 weeks of DAPT) 7. Further work up for pulmonary nodule as outpatient including PET scan and Pulmonary evaluation Further plans are to be followed Follow up with [facility], Dr. Vaughan as outpatient after coronary intervention. [phone] Spoke with his in detail Spent 60 min counseling and coordinating care Abel Vaughan MD
[2019-11-26] MEDS ORDERED: ASPIRIN 81 MG CHEWABLE TABLETS PO SCH (10:00)
[2019-11-26] MEDS ORDERED: METOPROLOL TARTRATE 25 MG TABLET (FP) PO SCH ×2 (10:00→16:59)
[2019-11-26] MEDS: PANTOPRAZOLE SODIUM 40 MG VIAL IVPUSH SCH (10:14)
--- NOTE | 2019-11-26 10:57 | DS ---
Physical Exam: SUBJECTIVE: Patient seen and examined OBJECTIVE: Vital Signs Period Temp Pulse Resp BP Sys/[place] Pulse Ox Last 24 Hr 97.6 F-98.4 F 60-71 16-18 106-140/69-93 97-100 PHYSICAL EXAM GENERAL: Awake, alert, and fully oriented, in no acute distress. HEAD: Normal with no signs of trauma. EYES: Pupils equal, round and reactive to light, extraocular movements intact, sclera anicteric, conjunctiva clear. No lid lag. EARS, NOSE, THROAT: Ears normal, nares patent, oropharynx clear without exudates. Moist mucous membranes. NECK: Normal range of motion, supple without lymphadenopathy, JVD, or masses. LUNGS: Breath sounds equal, clear to auscultation bilaterally. No wheezes, and no crackles. No accessory muscle use. HEART: Regular rate and rhythm, normal S1 and S2 without murmur, rub or gallop. ABDOMEN: Soft, nontender, not distended, normoactive bowel sounds, no guarding, no rebound, no masses. No hepatomegaly or splenomegaly. MUSCULOSKELETAL: Normal range of motion at all joints. No bony deformities or tenderness. No CVA tenderness. UPPER EXTREMITIES: 2+ pulses, warm, well-perfused. No cyanosis. No clubbing. No peripheral edema. LOWER EXTREMITIES: 2+ pulses, warm, well-perfused. No calf tenderness. No peripheral edema. NEUROLOGICAL: Cranial nerves II-XII intact. Normal speech. Normal gait. PSYCHIATRIC: Cooperative. Good eye contact. Appropriate mood and affect. SKIN: Warm, dry, normal turgor, no rashes or lesions noted, normal capillary refill. LABS Laboratory Results - last 24 hr 11/25/19 11/25/19 11/25/19 10:14 10:14 10:14 WBC RBC Hgb Hct MCV MCH MCHC RDW Plt Count MPV Absolute Neuts (auto) Neutrophils % Lymphocytes % Monocytes % Eosinophils % Basophils % PT with INR INR PTT (Actin FS) D-Dimer Sodium Potassium Chloride Carbon Dioxide Anion Gap BUN Creatinine Est GFR (CKD-EPI)AfAm Est GFR (CKD-EPI)NonAf Random Glucose Calcium Magnesium Total Bilirubin AST ALT Alkaline Phosphatase Creatine Kinase 157 Creatine Kinase Index 5.2 H CK-MB (CK-2) 8.2 H Troponin I No Result Required. 0.35 H Total Protein Albumin Triglycerides Cholesterol Total LDL Cholesterol HDL Cholesterol Lipase 139 Cancelled TSH 11/25/19 11/25/19 11/25/19 13:35 13:35 17:40 WBC RBC Hgb Hct MCV MCH MCHC RDW Plt Count MPV Absolute Neuts (auto) Neutrophils % Lymphocytes % Monocytes % Eosinophils % Basophils % PT with INR INR PTT (Actin FS) D-Dimer Sodium Potassium Chloride Carbon Dioxide Anion Gap BUN Creatinine Est GFR (CKD-EPI)AfAm Est GFR (CKD-EPI)NonAf Random Glucose Calcium Magnesium Total Bilirubin AST ALT Alkaline Phosphatase Creatine Kinase 138 Creatine Kinase Index CK-MB (CK-2) Troponin I 0.41 H 0.64 H* Total Protein Albumin Triglycerides Cholesterol Total LDL Cholesterol HDL Cholesterol Lipase TSH 11/25/19 11/25/19 11/25/19 17:40 17:40 17:40 WBC RBC Hgb Hct MCV MCH MCHC RDW Plt Count MPV Absolute Neuts (auto) Neutrophils % Lymphocytes % Monocytes % Eosinophils % Basophils % PT with INR 11.9 INR 1.06 PTT (Actin FS) 29.4 D-Dimer Sodium Potassium Chloride Carbon Dioxide Anion Gap BUN Creatinine Est GFR (CKD-EPI)AfAm Est GFR (CKD-EPI)NonAf Random Glucose Calcium Magnesium Total Bilirubin AST ALT Alkaline Phosphatase Creatine Kinase 127 Creatine Kinase Index CK-MB (CK-2) Troponin I Total Protein Albumin Triglycerides Cholesterol Total LDL Cholesterol HDL Cholesterol Lipase TSH 3.48 11/25/19 11/25/19 11/26/19 17:40 18:50 02:00 WBC RBC Hgb Hct MCV MCH MCHC RDW Plt Count MPV Absolute Neuts (auto) Neutrophils % Lymphocytes % Monocytes % Eosinophils % Basophils % PT with INR INR PTT (Actin FS) D-Dimer 345 Sodium Potassium Chloride Carbon Dioxide Anion Gap BUN Creatinine Est GFR (CKD-EPI)AfAm Est GFR (CKD-EPI)NonAf Random Glucose Calcium Magnesium Total Bilirubin AST ALT Alkaline Phosphatase Creatine Kinase Creatine Kinase Index CK-MB (CK-2) Troponin I 0.60 H Total Protein Albumin Triglycerides 167 H Cholesterol 198 Total LDL Cholesterol 105 H HDL Cholesterol 60 Lipase TSH 11/26/19 11/26/19 11/26/19 06:47 06:47 08:06 WBC 5.2 RBC 4.21 Hgb 13.3 Hct 40.1 MCV 95.3 MCH 31.7 MCHC 33.2 RDW 11.9 Plt Count 232 MPV 9.0 Absolute Neuts (auto) 3.5 Neutrophils % 65.8 Lymphocytes % 20.2 Monocytes % 9.5 Eosinophils % 3.7 Basophils % 0.8 PT with INR INR PTT (Actin FS) D-Dimer Sodium 138 Potassium 4.0 Chloride 105 Carbon Dioxide 25 Anion Gap 8 BUN 25.0 H Creatinine 0.9 Est GFR (CKD-EPI)AfAm 99.94 Est GFR (CKD-EPI)NonAf 86.23 Random Glucose 108 H Calcium 8.8 Magnesium 2.1 Total Bilirubin 0.7 AST 23 ALT 21 Alkaline Phosphatase 55 Creatine Kinase Creatine Kinase Index CK-MB (CK-2) Troponin I 0.37 H Total Protein 6.4 Albumin 3.5 Triglycerides Cholesterol Total LDL Cholesterol HDL Cholesterol Lipase TSH HOSPITAL COURSE: Date of Admission:11/25/19 Date of Discharge: 11/26/19 Pre hosptial course 69 year-old male with a PMH significant for hyperlipidemia, and Mike-Parkinson- White syndrome (lifelong asymptomatic), presented to the ED for evaluation of an episode of chest pain at 2:00am this morning. The pain awoke patient from sleep. He describes the pain as a sharp/burning epigastric discomfort, directly over the sternum, approximately 7 out of 10, nonradiating left or right. When he walked to the bathroom he felt lightheaded like he was about to pass out. At 4am he took Pepto Bismol and again went back to sleep. At 6:30am, his observed him stumbling into her bathroom. He was unsteady on his feet with labored breathing and complaining of severe chest pain. At 7:50am she drove him to urgent care. She observed him walking slowly with labored breathing. Since arriving in the ED patient states the pain has completely resolved. Two months ago patient had a gout flare in his right ankle, took colchicine x 5 days, remained active. ER course (1) Troponin 0.35 Subsequent hospital course 69 year-old male with a PMH significant for hyperlipidemia and Mike-Parkinson- White syndrome, placed on observation for chest pain and elevated troponins. NSTEMI. Also incidentally found to have suspicious 11mm lung nodule. Chest pain NSTEMI --troponins 0.35-->0.41-->0.64-->0.60-->0.37 --ASA, atorvastatin to 80mg, lovenox 1mg/kg BID, low dose metoprolol; Plavix started 11/26 --Echo pending --CTA negative for PE --US negative for DVT Lung lesion --CTA: 11mm nodule in the LLL, posteriorly, with a spiculated/irregular margin suspicious for a neoplasm --discussed findings with patient, gave contact information for Dr. Lalo Dumas; advised patient to make an appointment as soon as he is discharged from [facility] Hyperlipidemia --continue statin Gout --not on regular medication; last flare 2 months ago Dispo: awaiting transfer to [facility] for cardiac cath. Minutes to complete discharge: 35 Discharge Summary Problems reviewed: Yes Reason For Visit: CHEST PAIN Current Active Problems Chest pain (Acute) Hypercholesterolemia (Acute) NSTEMI (non-ST elevated myocardial infarction) (Acute) Pulmonary nodule (Acute) WPW (Acvph-Tcrhunexa-Cgofr syndrome) (Acute) Condition: Stable - Instructions Diet, Activity, Other Instructions: You are being transferred to [facility] for further cardiac evaluation. During your hospital stay, CT imaging of your chest was performed. The study shows an 11mm nodule in the left lower lung lobe which is supicious for a neoplasm. You will need further, prompt workup of this nodule. When you are discharged from [facility], please call the office of Dr. Lalo Dumas, an oncologist from [facility], and make an appointment at your earliest opportunity. Dr. Lalo Dumas [address], [address] [place] [address] Referrals: Lalo Dumas MD [Staff Physician] - Disposition: TRANSFER ACUTE CARE/OTHER HOSP - Home Medications Comprehensive Discharge Medication List: Ambulatory Orders Aspirin [ASA -] 81 mg PO DAILY tab.chew 11/26/19 Atorvastatin Ca [Lipitor] 80 mg PO HS tablet 11/26/19 Enoxaparin [Lovenox -] 75 mg SQ Q12H disp.syrin 11/26/19 Metoprolol Tartrate [Lopressor -] 12.5 mg PO BID tablet 11/26/19 Nitroglycerin Sublingual [Nitrostat -] 0.4 mg SL Q5M PRN tab 11/26/19 Pantoprazole Sodium [Protonix IV] 40 mg IVPUSH DAILY vial 11/26/19 This patient is new to me today: No Emergency Visit: Yes ED Registration Date: 11/25/19 Care time: The patient presented to the Emergency Department on the above date and was hospitalized for further evaluation of their emergent condition. Critical Care patient: Yes Total Critical Care Time (in minutes): 75 Critical Care Statement: The care of this patient involved high complexity decision making to prevent further life threatening deterioration of the patient 's condition and/or to evaluate & treat vital organ system(s) failure or risk of failure. - Discharge Referral Referred to [facility] No
[2019-11-26] MEDS ORDERED: CLOPIDOGREL BISULFATE 75 MG TABLET (FP) PO SCH (12:00)
--- NOTE | 2019-11-26 16:27 | EKG ---
Test Reason : Blood Pressure : / mmHG Vent. Rate : 066 BPM Atrial Rate : 066 BPM P-R Int : 138 ms QRS Dur : 112 ms QT Int : 436 ms P-R-T Axes : 031 -23 076 degrees QTc Int : 457 ms SINUS RHYTHM WITH OCCASIONAL PREMATURE VENTRICULAR COMPLEXES VENTRICULAR PRE-EXCITATION, WPW PATTERN TYPE A ABNORMAL ECG WHEN COMPARED WITH ECG OF 25-NOV-2019 10:05, SINUS RHYTHM HAS REPLACED ECTOPIC ATRIAL RHYTHM [id number] IS NOW PRESENT Confirmed by MD PHILIP, LILY ([id number]) on 11/26/2019 4:27:27 PM Referred By: MONICA JARRELL Confirmed By:LILY PALACIOS MD
--- NOTE | 2019-11-26 17:23 | ECHO ---
Version: 1 Name: JEIMY LARIOS Exam: Adult Echocardiogram Study Date: 11/26/2019, 1:15 PM Age: 69 Years MMode/2D Measurements & Calculations IVSd: 1.19 cm LVIDs: 2.6 cm LVIDd: 3.9 cm LVPWd: 1.15 cm ACS: 2.10 cm Ao root diam: 3.5 cm LVOT diam: 2.02 cm LA dimension: 3.6 cm Doppler Measurements & Calculations MV E max mando: 54.9 cm/sec MV A max mando: 80.4 cm/sec MV E/A: 0.68 Ao max P.7 mmHg NAVEED(I,D): 2.8 cm Ao mean P.9 mmHg LV V1 mean: 61.6 cm/sec Ao V2 max: 119.0 cm/sec LV V1 mean P.86 mmHg TR max mando: 217.2 cm/sec TR max P.9 mmHg Procedure The study was technically difficult with many images being suboptimal in quality. Left Ventricle The left ventricular size, thickness and function are normal. Ejection Fraction = 70%. The transmitr al spectral Doppler flow pattern is suggestive of impaired LV relaxation. Right Ventricle The right ventricle is normal in size and function. Atria Normal left and right atrial size and function. Mitral Valve The mitral valve is normal in structure and function. There is no mitral regurgitation noted. Tricuspid Valve The tricuspid valve is normal in structure and function. There is mild tricuspid regurgitation. Aortic Valve The aortic valve is normal in structure and function. Pulmonic Valve The pulmonic valve is not well visualized. Great Vessels The aortic root is normal size. Normal aortic arch, descending and ascending aorta. Pericardium/Pleura There is no pericardial effusion. Summary Statements The study was technically difficult with many images being suboptimal in quality. The left ventricular size, thickness and function are normal Ejection Fraction = 70%. The transmitral spectral Doppler flow pattern is suggestive of impaired LV relaxation. The right ventricle is normal in size and function. Normal left and right atrial size and function. The mitral valve is normal in structure and function. There is no mitral regurgitation noted. The tricuspid valve is normal in structure and function. There is mild tricuspid regurgitation. The aortic valve is normal in structure and function. The pulmonic valve is not well visualized. The aortic root is normal size. Normal aortic arch, descending and ascending aorta There is no pericardial effusion. Ihsan Marquez 11/26/2019, 5:23 PM Ordering Physician: Lidia Jarrell Referring Physician: LIDIA JARRELL Performed By: Alisia Garcia
[2019-11-26] MEDS: ATORVASTATIN CA 80 MG TABLET (FP) PO SCH (21:13)
[2019-11-27 01:46] VITALS: TEMP 98
[2019-11-27] MEDS: ENOXAPARIN NA (PORCINE) 80 MG/0.8 ML DISP.SYRIN SQ SCH (06:43)
[2019-11-27 06:52] VITALS: BP 136/81; PULSE 65
[2019-11-27 07:48] LABS: CALCIUM 9.1 mg/dl (8.5-10); CREATININE 0.9 mg/dl (0.55-1.3); MAGNESIUM 2.2 mg/dL (1.8-2.4); POTASSIUM 4.2 mmol/L (3.5-5.1)
--- NOTE | 2019-11-27 15:40 | EKG ---
Test Reason : Blood Pressure : / mmHG Vent. Rate : 070 BPM Atrial Rate : 070 BPM P-R Int : 138 ms QRS Dur : 110 ms QT Int : 426 ms P-R-T Axes : 036 -17 070 degrees QTc Int : 460 ms SINUS RHYTHM WITH WPW ABNORMAL ECG Confirmed by MD PALACIOS MOYSES ([id number]) on 11/27/2019 3:39:35 PM Referred By: MONICA JARRELL Confirmed By:LILY PALACIOS MD
== END 2019-11-27 08:43 | disposition short-term general hospital (02) | DRG 282 ==
LOC: FER 09:23 → FM/S 12:30 → UNDOADMOB 12:30 → INTOOBSV 12:30 → FM/S 16:06 → OBSVTOIN 11-26 07:00
PROVIDERS: ADMIT Internal Medicine; ATTEND Nurse Practitioner Acute Care
DX: I21.4 Non-ST elevation (NSTEMI) myocardial infarction (principal); E78.5 Hyperlipidemia, unspecified; I45.6 Pre-excitation syndrome; R91.1 Solitary pulmonary nodule; M1A.9XX0 Chronic gout, unspecified, without tophus (tophi)
CPT/HCPCS: 36415; 71046-TC-FY; 71275-TC; 80048; 80053; 80061; 82550; 82553; 83690; 83735; 84443; 84484; 85025; 85379; 85610; 85730; 93005; 93306-TC; 93970-TC; 99285-25; G0378; Q9967

== ENCOUNTER 2020-12-21 18:25 | Emergency (ER) | payer OTHER, MEDICARE ==
[2020-12-21 18:40] VITALS: BMI 25.5
[2020-12-21 19:40] LABS: BASO % 0.8 % (0-2.0); EOS % 2.9 % (0-4.5); HEMATOCRIT 39.8 % (35.4-49); HEMOGLOBIN 13.3 GM/dl (11.7-16.9); LYMPH % 15.1 % (8-40); MCH 31.9 pg (25.7-33.7); MCHC 33.3 g/dl (32.0-35.9); MEAN CELL VOLUME 95.6 fl (80-96); MEAN PLT VOLUME 7.8 fl (7.5-11.1); NEUT % 72.2 % (42.8-82.8); PLATELET COUNT 270 K/MM3 (134-434); RBC 4.16 M/mm3 (4.00-5.60); WHITE BLOOD COUNT 6.4 K/mm3 (4.0-10.8)
[2020-12-21 19:54] LABS: ALBUMIN 3.8 g/dl (3.4-5.0); BILIRUBIN,TOTAL 0.6 mg/dl (0.2-1); CALCIUM 8.8 mg/dl (8.5-10); CREATININE 0.8 mg/dl (0.55-1.3); POTASSIUM 4.3 mmol/L (3.5-5.1); TOT PROT 6.8 g/dl (6.4-8.2)
[2020-12-21 20:47] VITALS: BP 145/68
[2020-12-21 20:49] VITALS: TEMP 98.1
[2020-12-21 20:56] VITALS: PULSE 69
== END 2020-12-21 21:25 | disposition left against medical advice (07) ==
LOC: FER 18:25
DX: R04.2 Hemoptysis (principal)
CPT/HCPCS: 36415; 71046-TC-FY; 80053; 82550; 84484; 85025; 93005; 99285-25; C9803; U0003

== ENCOUNTER 2024-01-27 19:11 | Inpatient (IN) | payer OTHER, MEDICARE ==
[2024-01-27] MEDS ORDERED: dilTIAZem HCL 50 MG/10 ML - 10 ML VIAL IVPUSH ONE (19:36)
[2024-01-27] MEDS ORDERED: dilTIAZem HCL 30 MG TABLET ONE (19:38)
[2024-01-27] MEDS ORDERED: dilTIAZem HCL 125 MG/25 ML - 25 ML VIAL ONE ×2 (19:39→19:41)
[2024-01-27] MEDS ORDERED: dilTIAZem HCL 50 MG/10 ML - 10 ML VIAL ONE (19:41)
[2024-01-27 19:54] LABS: HEMATOCRIT 41.2 % (35.4-49); HEMOGLOBIN 13.5 G/dL (11.7-16.9); MCH 30.7 pg (25.7-33.7); MCHC 32.9 g/dl (32.0-35.9); MEAN CELL VOLUME 93.5 fl (80-96); MEAN PLT VOLUME 8.4 fl (7.5-11.1); PLATELET COUNT 273.5 10^3/uL (134-434); RBC 4.41 10^6/uL (4.00-5.60); RDW 13.8 % (11.9-15.9); WHITE BLOOD COUNT 7.8 10^3/uL (4.0-10.8)
[2024-01-27 20:07] LABS: INR 0.94 (0.83-1.09); PROTHROMBIN TIME (PATIENT) 10.9 SEC (9.7-13.0)
[2024-01-27] MEDS ORDERED: PROPOFOL 20 ML ONE (20:09)
[2024-01-27 20:10] LABS: ACTIVATED PTT 29.3 SECONDS (25.2-36.5)
[2024-01-27 20:15] LABS: BILIRUBIN,TOTAL 0.3 mg/dl (0.2-1); CALCIUM 9.3 mg/dl (8.5-10.1); POTASSIUM 4.4 mmol/L (3.5-5.1); TOT PROT 6.4 g/dl (6.4-8.2)
[2024-01-27] MEDS ORDERED: AMIODARONE HCL INJECTION 150 MG in DEXTROSE 5%-WATER - 100 ML IVPB ONE (20:49)
[2024-01-27] MEDS ORDERED: AMIODARONE HCL 150 MG/3 ML VIAL ONE (21:05)
[2024-01-27] MEDS ORDERED: AMIODARONE IN DEXTROSE,ISO-OSM 360 MG/200 ML BAG ONE (21:05)
[2024-01-27] MEDS: AMIODARONE IN DEXTROSE,ISO-OSM 360 MG/200 ML BAG IV SCH (21:16)
[2024-01-27] MEDS: AMIODARONE HCL 150 MG/3 ML VIAL IVPUSH ONE (21:16)
[2024-01-27] MEDS: APIXABAN 5 MG TABLET PO SCH (23:19)
[2024-01-27 23:45] LABS: ARTERIAL BLD GAS O2 SATURATION 96.2 % (95-98); ARTERIAL BLOOD GAS BASE EXCESS -0.1 mmol/L (-2-2); ARTERIAL BLOOD GAS pH 7.425 (7.350-7.450)
[2024-01-27 23:47] LABS: ALLENS TEST POSITIVE
[2024-01-28 01:11] LABS: POTASSIUM 4.2 mmol/L (3.5-5.1)
[2024-01-28 01:14] LABS: ALBUMIN 3.1 g/dl (3.4-5.0); BLOOD UREA NITROGEN 21.5 mg/dL (7-18); CALCIUM 8.6 mg/dL (8.5-10.1)
[2024-01-28 01:17] LABS: CREATININE 0.8 mg/dL (0.55-1.3); PHOSPHOROUS 4.2 mg/dL (2.5-4.9)
[2024-01-28 01:19] LABS: BILIRUBIN,TOTAL 0.3 mg/dL (0.2-1); TOT PROT 6.1 g/dl (6.4-8.2)
[2024-01-28] MEDS: AMIODARONE IN DEXTROSE,ISO-OSM 360 MG/200 ML BAG IV SCH (03:30)
[2024-01-28 07:52] LABS: INR 1.14 (0.83-1.09); PROTHROMBIN TIME (PATIENT) 13.2 SEC (9.7-13.0)
[2024-01-28 07:56] LABS: ACTIVATED PTT 32.6 SECONDS (25.2-36.5)
[2024-01-28 07:57] LABS: BASO % 1.4 % (0-2.0); HEMATOCRIT 36.6 % (35.4-49); HEMOGLOBIN 12.1 GM/dL (11.7-16.9); LYMPH % 26.1 % (8-40); MCH 30.9 pg (25.7-33.7); MEAN CELL VOLUME 93.7 fl (80-96); MEAN PLT VOLUME 8.1 fl (7.5-11.1); MONO % 11.9 % (3.8-10.2); NEUT % 55.6 % (42.8-82.8); PLATELET COUNT 267 10^3/uL (134-434); RBC 3.91 M/mm3 (4.00-5.60); RDW 13.8 % (11.9-15.9); WHITE BLOOD COUNT 4.3 K/mm3 (4.0-10.0)
[2024-01-28 08:23] LABS: N-TERMINAL BNP 521.6 pg/ml (5-125)
[2024-01-28 08:24] LABS: URINE APPEARANCE CLEAR; URINE BILIRUBIN NEGATIVE (NEGATIVE); URINE COLOR YELLOW; URINE GLUCOSE (UA) NEGATIVE (NEGATIVE); URINE KETONE NEGATIVE (NEGATIVE); URINE LEUK ESTERASE NEGATIVE (NEGATIVE); URINE NITRITE NEGATIVE (NEGATIVE); URINE PROTEIN NEGATIVE (NEGATIVE); URINE UROBILINOGEN 0.2 mg/dL (0.2-1.0)
[2024-01-28] MEDS: MUPIROCIN 2% TOPICAL OINTMENT FOR DECOLONIZATION NS SCH (09:22)
[2024-01-28] MEDS: CHLORHEXIDINE GLUCONATE 4% CLEANSER FOR DECOLONIZATION TP SCH (20:59)
[2024-01-29] MEDS: AMIODARONE HCL 200 MG TABLET PO SCH (09:01)
[2024-01-29 09:16] LABS: EOS % 4.1 % (0-4.5); HEMATOCRIT 38.3 % (35.4-49); LYMPH % 15.8 % (8-40); MCH 31.3 pg (25.7-33.7); MEAN CELL VOLUME 92.1 fl (80-96); MEAN PLT VOLUME 8.1 fl (7.5-11.1); MONO % 8.2 % (3.8-10.2); NEUT % 70.9 % (42.8-82.8); PLATELET COUNT 261 10^3/uL (134-434); RBC 4.16 M/mm3 (4.00-5.60); RDW 13.4 % (11.9-15.9); WHITE BLOOD COUNT 5.2 K/mm3 (4.0-10.0)
[2024-01-29 09:37] LABS: POTASSIUM 4.2 mmol/L (3.5-5.1)
[2024-01-29 09:40] LABS: ALBUMIN 3.2 g/dl (3.4-5.0); BLOOD UREA NITROGEN 12.3 mg/dL (7-18); CALCIUM 8.9 mg/dL (8.5-10.1); MAGNESIUM 2.3 mg/dL (1.8-2.4)
[2024-01-29 09:42] LABS: PHOSPHOROUS 4.3 mg/dL (2.5-4.9)
[2024-01-29 09:43] LABS: CREATININE 0.8 mg/dL (0.55-1.3)
[2024-01-29 09:45] LABS: BILIRUBIN,TOTAL 0.4 mg/dL (0.2-1); TOT PROT 6.3 g/dl (6.4-8.2)
[2024-01-29 12:29] VITALS: TEMP 97.8
[2024-01-29 14:35] VITALS: BMI 25.7
[2024-01-29 15:20] VITALS: BP 144/78; PULSE 74; RESP 19
[2024-01-29] MEDS ORDERED: ATORVASTATIN CA 20 MG TABLET (FP) PO SCH (22:00)
== END 2024-01-29 16:40 | disposition home or self-care (01) | DRG 309 ==
LOC: FER 19:11 → JICU 22:09
PROVIDERS: ADMIT Internal Medicine; ATTEND Internal Medicine
PROC: 5A2204Z Restoration of Cardiac Rhythm, Single (ICD-10-PCS; principal; 2024-01-27)
DX: I47.20 Ventricular tachycardia, unspecified (principal); I24.89 Other forms of acute ischemic heart disease; I51.81 Takotsubo syndrome; I45.6 Pre-excitation syndrome; I47.19 Other supraventricular tachycardia; I10 Essential (primary) hypertension; E78.5 Hyperlipidemia, unspecified; I48.91 Unspecified atrial fibrillation; I49.1 Atrial premature depolarization; R00.2 Palpitations; R07.89 Other chest pain
CPT/HCPCS: 0241U-QW; 36415; 36600; 71045-TC-FY; 71260-TC; 80053; 81003; 82550; 82803; 83036; 83605; 83690; 83735; 83880; 84100; 84436; 84443; 84484; 85025; 85027; 85610; 85730; 86850; 86900; 86901; 93005; 93010; 93306-TC; 99285-25; Q9967